=== PATIENT | male | born 1995 | race Two or more races ===

== ENCOUNTER 2019-02-24 09:24 | Emergency (ER) | payer OTHER ==
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
[2019-02-24 10:14] LABS: ABSOLUTE EOSINOPHILS # (AUTO) 0.5 10^3/uL (0.0-0.6); ABSOLUTE LYMPHOCYTES (AUTO) 1.9 10^3/uL (0.5-4.7); ABSOLUTE MONOCYTES (AUTO) 0.7 10^3/uL (0.1-1.4); ABSOLUTE NEUT (AUTO) 6.8 10^3/uL (1.7-8.2); BASOPHILS % (AUTO) 0.3 % (0-2); EOSINOPHILS % (AUTO) 4.7 % (0-6); HEMATOCRIT 47.5 % (37.9-51.0); HEMOGLOBIN 16.4 g/dL (13.5-17.0); LYMPHOCYTES % (AUTO) 19.4 % (13-45); MEAN CORPUSCULAR HEMOGLOBIN 29.7 pg (27.0-33.4); MEAN CORPUSCULAR HGB CONC 34.5 g/dL (32.0-36.0); MEAN CORPUSCULAR VOLUME 86 fl (80-97); PLATELET COUNT 144 10^3/uL (150-450); RED BLOOD COUNT 5.53 10^6/uL (4.35-5.55); RED CELL DISTRIBUTION WIDTH 14.1 % (11.5-14.0); SEGMENTED NEUTROPHILS % (AUTO) 68.6 % (42-78); TOTAL CELLS COUNTED % (AUTO) 100 %; WHITE BLOOD COUNT 9.9 10^3/uL (4.0-10.5)
[2019-02-24 10:31] LABS: ANION GAP 10 (5-19); BLOOD UREA NITROGEN 12 mg/dL (7-20); CALCIUM 9.7 mg/dL (8.4-10.2); CARBON DIOXIDE 25 mmol/L (22-30); CHLORIDE 105 mmol/L (98-107); GLUCOSE 96 mg/dL (75-110); POTASSIUM 4.4 mmol/L (3.6-5.0)
[2019-02-24] MEDS ORDERED: HYDROCORTISONE ACETATE 25 MG SUPP.RECT PR ONE (10:41)
--- NOTE | 2019-02-24 10:51 | ER Document Report ---
ED General - General Chief Complaint: Hemorrhoids Stated Complaint: ABDOMINAL PAIN Time Seen by Provider: 02/24/19 09:50 Primary Care Provider: JAY MCCORD MD [ACTIVE STAFF] - Follow up in 3-5 days Mode of Arrival: Ambulatory Information source: Patient, [facility] Records Notes: 23-year-old male with no reported past medical history presents with rectal pain. Patient states pain started 2 days prior to arrival. He states that he has had swelling around the rectum. He states that the pain is so severe that he is having difficulty with bowel movements. His last bowel movement was 2 days ago. He denies any black or bloody stools. Patient states he has had prior similar symptoms which was diagnosed as an abscess and was drained. Patient denies any purulent drainage from the rectum, anal sex, foreign body insertion. TRAVEL OUTSIDE OF THE [place] IN LAST 30 DAYS: No - HPI Onset: Other Onset/Duration: Gradual, Persistent Quality of pain: Throbbing Severity: Moderate Pain Level: 2 Associated symptoms: denies: Chest pain, Diarrhea, Fever, Hurts to breath, Nausea, Vomiting, Shortness of breath, Sweating Exacerbated by: Other - Bowel movement Relieved by: Denies Similar symptoms previously: Yes Recently seen / treated by doctor: No - Related Data Allergies/Adverse Reactions: divalproex sodium [From Depakote] Allergy (Verified 02/24/19 09:30) lithium Allergy (Verified 02/24/19 09:30) Past Medical History - General Information source: Patient - Social History Smoking Status: Current Every Day Smoker Cigarette use (# per day): Yes - 10 Smoking Education Provided: Yes - Smoking cessation counseling was provided for 4 minutes at the bedside Frequency of alcohol use: None Drug Abuse: None Lives with: Family Family History: Reviewed & Not Pertinent Patient has suicidal ideation: No Patient has homicidal ideation: No - Medical History Medical History: Negative Review of Systems - Review of Systems Notes: REVIEW OF SYSTEMS: CONSTITUTIONAL : Denies fever, chills, or sweats. Denies recent illness. Den ies weight loss, recent hospitalizations. EENT: Denies visual changes, eye pain. Denies sore throat, oral lesions, difficulty swallowing. CARDIOVASCULAR: Denies chest pain. Denies palpitations. Denies lower extremity edema. RESPIRATORY: Denies cough. Denies shortness of breath, wheezing. GASTROINTESTINAL: Denies abdominal pain or distention. Denies nausea, vomiting, or diarrhea. Denies blood in vomitus, stools, or per rectum. Denies black, tarry stools. Denies constipation. GENITOURINARY: Denies difficulty urinating, painful urination, frequency, blood in urine, testicular pain or penile discharge. MUSCULOSKELETAL: Denies back or neck pain or stiffness. Denies joint pain or s welling. SKIN: Denies rash, lesions or sores. HEMATOLOGIC : Denies easy bruising or bleeding. LYMPHATIC: Denies swollen glands. NEUROLOGICAL: Denies confusion or altered mental status. Denies loss of consciousness. Denies dizziness or lightheadedness. Denies headache. Denies weakness or paralysis. Denies problems difficulty with ambulation, slurred speech. Denies sensory loss, numbness, or tingling. Denies seizures. PSYCHIATRIC: Denies anxiety or stress. Denies depression, suicidal ideation, Physical Exam - Vital signs Vitals: Temp Pulse Resp BP Pulse Ox 98.4 F 76 18 147/80 H 96 02/24/19 09:38 02/24/19 09:38 02/24/19 09:38 02/24/19 09:38 02/24/19 09:38 - Notes Notes: PHYSICAL EXAMINATION: GENERAL: Well-appearing, well-nourished and in no acute distress. HEAD: Atraumatic, normocephalic. EYES: Pupils equal round and reactive to light, extraocular movements intact, sclera anicteric, conjunctiva are normal. ENT: Nares patent, oropharynx clear without exudates. Moist mucous membranes. NECK: Normal range of motion, supple without lymphadenopathy LUNGS: Breath sounds clear to auscultation bilaterally and equal. No wheezes rales or rhonchi. HEART: Regular rate and rhythm without murmurs ABDOMEN: Soft, nontender, nondistended abdomen. No guarding, no rebound. No masses appreciated. Musculoskeletal: Normal range of motion, no pitting or edema. No cyanosis. Rectal; no area of fluctuance, induration, pain with palpation. No external hemorrhoid. No rectal mass, fecal impaction, prostate soft. NEUROLOGICAL: Cranial nerves grossly intact. Normal speech, normal gait. Normal sensory, motor exams PSYCH: Normal mood, normal affect. SKIN: Warm, Dry, normal turgor, no rashes or lesions noted. Course - Re-evaluation Re-evalutation: 02/25/19 13:00 Laboratory 02/24/19 02/24/19 10:00 10:00 WBC 9.9 RBC 5.53 Hgb 16.4 Hct 47.5 MCV 86 MCH 29.7 MCHC 34.5 RDW 14.1 H Plt Count 144 L Seg Neutrophils % 68.6 Lymphocytes % 19.4 Monocytes % 7.0 Eosinophils % 4.7 Basophils % 0.3 Absolute Neutrophils 6.8 Absolute Lymphocytes 1.9 Absolute Monocytes 0.7 Absolute Eosinophils 0.5 Absolute Basophils 0.0 Sodium 140.0 Potassium 4.4 Chloride 105 Carbon Dioxide 25 Anion Gap 10 BUN 12 Creatinine 1.01 Est GFR ( Amer) > 60 Est GFR (Non-Af Amer) > 60 Glucose [address] 02/24/19 10:41 IMPRESSION: 1. No evidence of perirectal or perianal abscess. 2. Trace fluid in the low right pelvis, of uncertain significance, possibly reactive if there is rectal or anal inflammation. Normal appendix is adjacent. Temp Pulse Resp BP Pulse Ox 98.5 F 86 16 121/76 98 02/24/19 12:14 02/24/19 12:14 02/24/19 12:14 02/24/19 12:14 02/24/19 12:14 23-year-old male presents with complaint of rectal pain. Vital signs reviewed and within normal limits. Patient does not appear toxic or dehydrated. He is in no acute distress. Previous medical records and nursing notes reviewed. Rectal exam does not show any evidence of external hemorrhoid, perianal abscess. I felt no internal masses, fecal impaction and patient's prostate was nontender and soft. Because of the patient's report of deep rectal abscess a CT of the abdomen and pelvis with IV contrast was obtained and showed no perirectal or perianal abscess. There was some trace free fluid in the low right pelvis. Patient was given Anusol and recommended to follow-up with his primary care physician. Patient was evaluated and treated as appropriate for the patient's presenting symptoms and complaint, with consideration of any critical or life threatening conditions that may be associated with their obtained history and exam as noted above. All results were discussed with patient . Patient provided the opportunity to ask questions, and express concerns. Patient was educated on t reatments based on their presumed diagnosis as noted above. At this time we will discharge the patient with return precautions and follow-up recommendations. Verbal discharge instructions given a the bedside. Medication warnings reviewed. Patient is in agreement with this plan and has verbalized u nderstanding of return precautions. After careful consideration I feel that that patient can be safely discharged from the emergency department, they were advised to followup with a primary care physician in 2-3 days. Dictation on this chart was performed using voice recognition software and may result in unintended grammatical, spelling, syntax or errors. - Vital Signs Vital signs: Temp Pulse Resp BP Pulse Ox 98.5 F 86 16 121/76 98 02/24/19 12:14 02/24/19 12:14 02/24/19 12:14 02/24/19 12:14 02/24/19 12:14 - Laboratory Result Diagrams: 02/24/19 10:00 02/24/19 10:00 Laboratory results interpreted by me: 02/24/19 10:00 RDW 14.1 H Plt Count 144 L - Diagnostic Test Radiology reviewed: Image reviewed, Reports reviewed Discharge - Discharge Clinical Impression: Rectal pain Condition: Good Disposition: HOME, SELF-CARE Additional Instructions: Your CAT scan did not show any evidence of an abscess or any other abnormality in the pelvis. I did not see any evidence of internal or external hemorrhoids. Please follow-up with your primary care physician. Follow up with your [id number] hours for further care or return to the ED IMMEDIATELY if symptoms worsen or you have any concerns. If you cannot afford to follow up with your primary care physician a list of low cost clinics have been provided at the end of your discharge papers as well. Most prescribed medications have multiple side effects. The safest thing to do is when filling your prescription speak to your pharmacist regarding possible interactions with your normal home medications and over the counter medications such as Ibuprofen, Tylenol, Benadryl. If you experience any symptoms that cause you discomfort or concern you should discontinue the medication immediately and return to the emergency room or call your primary care physician. Prescriptions: Phenylephrine HCl [Anusol Suppository] 1 supp.rect OR BID #10 supp.rect Forms: Elevated Blood Pressure, Smoking Cessation Education Referrals: JAY MCCORD MD [ACTIVE STAFF] - Follow up in 3-5 days
--- NOTE | 2019-02-24 11:36 | RADIOLOGY REPORT (SQ) ---
EXAM DESCRIPTION: CT PELVIS WITH COMPLETED DATE/TIME: 02/24/2019 11:11 am REASON FOR STUDY: Rectal pain, history of abscess COMPARISON: None. TECHNIQUE: CT scan of the pelvis performed with intravenous contrast. 99 mL Omnipaque 350 iodinated contrast IV administered. Images reviewed with soft tissue and bone windows. Reconstructed coronal and sagittal MPR images reviewed. All images stored on PACS. All CT scanners at this facility use dose modulation, iterative reconstruction, and/or weight based d osing when appropriate to reduce radiation dose to as low as reasonably achievable (ALARA). [facility]: Dose Right [facility]: CareDose [facility]: Dose Right [facility]: Teradose 4D [facility]: Smart The [employer] RADIATION DOSE: CT Rad equipment meets quality standard of care and radiation dose reduction techniq ues were employed. CTDIvol: 14.3 - 19.0 mGy. DLP: 1333 mGy-cm. mGy. LIMITATIONS: None. FINDINGS: PELVIC BONES: No acute fracture. No worrisome bone lesions. VISUALIZED SPINE: No acute findings. HIP(S): No acute fracture or dislocation. No worrisome bone lesions. PELVIC SOFT TISSUES: There is trace fluid in the low right pelvis (series 3, image 26) EXTRAPELVIC SOFT TISSUES: No significant findings. OTHER: No other significant finding. IMPRESSION: 1. No evidence of perirectal or perianal abscess. 2. Trace fluid in the low right pelvis, of uncertain significance, possibly reactive if there is rec jarrett or anal inflammation. Normal appendix is adjacent. TECHNICAL DOCUMENTATION: JOB ID: [id number] Quality ID # [id number]: Final reports with documentation of one or more dose reduction techniques (e.g., Au tomated exposure control, adjustment of the mA and/or kV according to patient size, use of iterative reconstruction technique) 2010 [employer]- All Rights Reserved Reading location - IP/workstation name: [email or web address]
[2019-02-24 12:15] VITALS: BP 121/76
== END 2019-02-24 12:20 | disposition home or self-care (01) ==
LOC: ER 09:24
DX: K62.89 Other specified diseases of anus and rectum (principal); R18.8 Other ascites; F17.210 Nicotine dependence, cigarettes, uncomplicated; Z71.6 Tobacco abuse counseling; Z88.8 Allergy status to other drugs, medicaments and biological substances
CPT/HCPCS: 99283; 36415; 85025; 80048; 72193; J3490

== ENCOUNTER 2019-07-16 23:21 | Emergency (ER) | payer OTHER ==
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
[2019-07-17 00:14] LABS: ABSOLUTE EOSINOPHILS # (AUTO) 0.2 10^3/uL (0.0-0.6); ABSOLUTE LYMPHOCYTES (AUTO) 1.9 10^3/uL (0.5-4.7); ABSOLUTE MONOCYTES (AUTO) 0.6 10^3/uL (0.1-1.4); BASOPHILS % (AUTO) 0.4 % (0-2); EOSINOPHILS % (AUTO) 2.5 % (0-6); HEMATOCRIT 44.1 % (37.9-51.0); HEMOGLOBIN 15.2 g/dL (13.5-17.0); MEAN CORPUSCULAR HEMOGLOBIN 30.6 pg (27.0-33.4); MEAN CORPUSCULAR HGB CONC 34.5 g/dL (32.0-36.0); MEAN CORPUSCULAR VOLUME 89 fl (80-97); MONOCYTES % (AUTO) 7.2 % (3-13); PLATELET COUNT 169 10^3/uL (150-450); RED BLOOD COUNT 4.96 10^6/uL (4.35-5.55); RED CELL DISTRIBUTION WIDTH 13.4 % (11.5-14.0); SEGMENTED NEUTROPHILS % (AUTO) 67.9 % (42-78); TOTAL CELLS COUNTED % (AUTO) 100 %; WHITE BLOOD COUNT 8.8 10^3/uL (4.0-10.5)
--- NOTE | 2019-07-17 00:17 | EKG REPORT ---
SEVERITY:- NORMAL ECG - SINUS RHYTHM : Confirmed by: Isaías Prasad 17-Jul-2019 00:17:01
[2019-07-17 00:33] LABS: ALBUMIN 4.6 g/dL (3.5-5.0); ALKALINE PHOSPHATASE 67 U/L (38-126); ANION GAP 15 (5-19); ASPARTATE AMINO TRANSFERASE 40 U/L (17-59); BILIRUBIN,DIRECT 0.2 mg/dL (0.0-0.4); BILIRUBIN,TOTAL 0.5 mg/dL (0.2-1.3); BLOOD UREA NITROGEN 13 mg/dL (7-20); CALCIUM 9.6 mg/dL (8.4-10.2); CARBON DIOXIDE 24 mmol/L (22-30); CHLORIDE 102 mmol/L (98-107); GLUCOSE 112 mg/dL (75-110); POTASSIUM 3.4 mmol/L (3.6-5.0)
[2019-07-17 00:34] LABS: ACETAMINOPHEN < 10 ug/mL (10-30); ALCOHOL < 10 mg/dL (NONE DETECTED); SALICYLATE < 1.0 mg/dL (2.0-20.0)
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
--- NOTE | 2019-07-17 02:24 | RADIOLOGY REPORT (SQ) ---
EXAM DESCRIPTION: XR HAND 3 OR MORE VIEWS COMPLETED DATE/TME: 07/17/2019 01:10 CLINICAL HISTORY: 23 years Male, injury, swelling, laceration COMPARISON: None. Findings: Radiopaque foreign body measures 0.5 cm at the dorsoulnar aspect of the right fifth middle phalanx, proximal diaphysis and three faint radiopaque foreign bodies/debris measuring up to 0.3 cm at the dorsoradial aspect of the right fourth proximal interphalangeal joint. Swelling. Bones, joints, and soft tissues of the RIGHT XR HAND 3 OR MORE VIEWS appear otherwise unremarkable. IMPRESSION: Radiopaque foreign body measures 0.5 cm at the dorsoulnar aspect of the right fifth middle phalanx, proximal diaphysis and three faint radiopaque foreign bodies/debris measuring up to 0.3 cm at the dorsoradial aspect of the right fourth proximal interphalangeal joint. Swelling.
[2019-07-17] MEDS ORDERED: LIDOCAINE 1% INJ-PF (10 MG/ML) 30 ML SDV INJ ONE (02:33)
[2019-07-17] MEDS ORDERED: BUPIVACAINE HCL 0.5 % INJ/PF 30 ML SDV INJ ONE (02:34)
[2019-07-17] MEDS ORDERED: CEFAZOLIN INJ 1 GM VIAL IM ONE (03:06)
[2019-07-17 04:06] LABS: APPEARANCE,URINE CLEAR; BILIRUBIN,URINE NEGATIVE (NEGATIVE); COLOR,URINE YELLOW; GLUCOSE, URINE NEGATIVE (NEGATIVE); KETONES,URINE 20 mg/dL (NEGATIVE); LEUKOCYTE ESTERASE,URINE NEGATIVE (NEGATIVE); NITRITE,URINE NEGATIVE (NEGATIVE); PROTEIN,URINE NEGATIVE (NEGATIVE); URINE SPECIFIC GRAVITY 1.019
[2019-07-17 04:24] LABS: URINE AMPHETAMINES SCREEN NEGATIVE; URINE BARBITURATES SCREEN NEGATIVE; URINE BENZODIAZEPINES SCREEN NEGATIVE; URINE COCAINE SCREEN NEGATIVE; URINE MARIJUANA (THC) SCREEN UNCONFIRMED POSITIVE; URINE METHADONE SCREEN NEGATIVE; URINE PHENCYCLIDINE SCREEN NEGATIVE
--- NOTE | 2019-07-17 05:10 | RADIOLOGY REPORT (SQ) ---
EXAM DESCRIPTION: XR HAND 3 OR MORE VIEWS COMPLETED DATE/TME: 07/17/2019 04:32 CLINICAL HISTORY: 23 years, Male, foreign bodies still present? COMPARISON: None. FINDINGS: 3 views of the right hand. No acute fracture or dislocation. Normal osseous mineralization. Persistent faint radiopaque foreign bodies in the fourth digit dorsal soft tissues at the level of proximal interphalangeal joint. Interval removal of portions of the radiopaque foreign body in the dorsal soft tissues of the fifth digit with faint 2 mm foreign bodies identified. IMPRESSION: 1. Interval removal of a portion of the radiopaque foreign body in the dorsal soft tissues of the fifth digit. 2 faint remaining foreign bodies identified. 2. Faint foreign bodies in the dorsal soft tissues of the fourth digit again identified and not significantly changed. copyright 2010 [employer]- All Rights Reserved
[2019-07-17] MEDS ORDERED: POTASSIUM CHLORIDE 10 MEQ TABLET.ER PO ONE (05:30)
--- NOTE | 2019-07-17 09:29 | ER Document Report ---
Doctor's Note Notes: 07/17/19 09:26 Conducted morning rounds on patient. Patient was eating a banana and walking around the room. Patient states that he is wondering where the prove is for him to be on IVC status. Patient with very bizarre speech. Patient denies any physical complaints at this time. EXAM: Well-appearing, good eye contact, normal affect, congruent mood, somewhat pressured speech, tangential speech. As the rounding provider this AM, I assessed the patient's labs, vitals, and records. No concerning findings this morning. Patient denies any acute complaints. Wounds were copiously explored and irrigated overnight and dressings are in place. Patient is cleared for disposition by psychiatry.
[2019-07-17] MEDS: CEPHALEXIN 500 MG CAPSULE PO SCH ×4 (10:51→21:58)
--- NOTE | 2019-07-17 17:05 | PSYCHOLOGICAL NOTE ---
Psych Note - Psych Note Date seen by psych provider: 07/17/19 Time seen by psych provider: 08:15 Psych Note: Reason For Consult: Psychosis Consent Permissions: Unable to provide Patient is unable to engage effectively and evaluation. Clinician spoke with patient's brother who reports that the patient has been in and out of the hospital for psychiatric treatment for the last 3 years. He is reportedly diagnosed schizoaffective and states that he will have 2 or 3 months where he is "normal" and then months where he is responding to both auditory and visual hallucinations. He reports that the patient has had and had an increase in violence and has been concerned that the patient needs further assistance. Diagnosis: Schizoaffective bipolar type per history provided by family Medication recommendations per [facility]'s contracted psychiatrist Dr. Jignesh RICHARD are as follows Zyprexa Zydis 5 mg twice daily Cogentin 1 mg daily Impression\\plan: Patient is recommended for continued IVC. Patient is demonstrating behaviors of responding to internal stimuli. Patient is clearly unable to differentiate between reality and his delusions and hallucinations. He reports he is talking on his phone but is holding his hand up to his face. 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 When patient is asked to step into his room, the patient started to posture to clinician throwing the blanket over his shoulders, sticking out his chest and became verbally combative. Patient will be reevaluated. Dr. Jaeger was consulted to care management of this patient; attending physicians in agreement with recommendations and disposition.
[2019-07-17] MEDS ORDERED: BENZTROPINE MESYLATE 1 MG TABLET PO ONE (17:13)
[2019-07-17] MEDS: OLANZAPINE 5 MG TAB.RAPDIS PO SCH (17:29)
[2019-07-18] MEDS: OLANZAPINE 5 MG TAB.RAPDIS PO SCH (05:42)
[2019-07-18] MEDS ORDERED: DIPHENHYDRAMINE HCL 50 MG/ML VIAL IM ONE (05:53)
[2019-07-18] MEDS: CEPHALEXIN 500 MG CAPSULE PO SCH ×2 (09:35→13:28)
[2019-07-18] MEDS ORDERED: BENZTROPINE MESYLATE 1 MG TABLET PO SCH (10:00)
[2019-07-18 10:36] VITALS: BP 115/75
--- NOTE | 2019-07-18 11:48 | ER Document Report ---
Doctor's Note Notes: 07/18/19 11:45 Patient's vital signs and previous labs, diagnostic images reviewed. Reviewed mental health notes, nurse's notes and previous providers notes. VSS. Pt is in no distress at this time. Patient did eat breakfast without any issues. General: A&Ox3. Answers questions inappropriately regarding his times in the [facility] Heart: RRR Lungs: CTAB Psych: Agitated, pacing room. A/P: Continue monitoring and rec's per MH. Normal diet Consider placement.
[2019-07-18] MEDS ORDERED: RISPERIDONE 0.5 MG TAB.RAPDIS PO SCH (12:27)
[2019-07-18] MEDS ORDERED: CHLORPROMAZINE HCL INJ 25 MG/1 ML AMPULE IM ONE (12:28)
[2019-07-18] MEDS ORDERED: CHLORPROMAZINE HCL INJ 25 MG/1 ML AMPULE IV PRN (12:35)
--- NOTE | 2019-07-18 15:22 | PSYCHOLOGICAL NOTE ---
Psych Note - Psych Note Date seen by psych provider: 07/18/19 Psych Note: Reason For Consult: Psychosis Consent Permissions: Unable to provide Patient continues to be unable to engage effectively and evaluation. Patient continues to demonstrate behaviors of responding to internal stimuli carry on conversations with people not present. He is easily agitated and demonstrates delusions of grandeur when speaking with [facility] staff. Clinician spoke with [facility] coordinator, Steve. He confirms that he received referral packet and it is currently being reviewed by the physician for possible admission. They will contact [facility] when a decision is made. Diagnosis: Schizoaffective bipolar type per history provided by family UPDATED Medication recommendations per [facility]'s contracted psychiatrist Dr. Jignesh RICHARD are as follows Risperidone 0.5 mg PO twice daily Thorazine 50 mg IM every 8 hours as needed Cogentin 1 mg PO daily Impression\plan: Patient is recommended for continued IVC. Patient is demonstrating behaviors of responding to internal stimuli. Patient is clearly unable to differentiate between reality and his delusions and hallucinations. Patient continues to demonstrate behavours that he is responding to internal stimuli. Patient will be reevaluated. Dr. Jaeger was consulted to care management of this patient; attending physicians in agreement with recommendations and disposition.
== END 2019-07-18 17:15 ==
LOC: ER 23:21
DX: S61.226A Laceration with foreign body of right little finger without damage to nail, initial encounter (principal); S61.224A Laceration with foreign body of right ring finger without damage to nail, initial encounter; S50.812A Abrasion of left forearm, initial encounter; W22.8XXA Striking against or struck by other objects, initial encounter; F25.0 Schizoaffective disorder, bipolar type; F17.210 Nicotine dependence, cigarettes, uncomplicated; F12.10 Cannabis abuse, uncomplicated; Z88.8 Allergy status to other drugs, medicaments and biological substances
CPT/HCPCS: 93005; 99285; 96372; 36415; 80307 ×4; 85025; 80053; 81001; 93010; J0690; J3230; J3490 ×3